=== PATIENT | female | born 1965 | race African-American/Black ===

== ENCOUNTER 2018-04-18 12:09 | Emergency (ER) | payer MEDICAID ==
[~2018-04-18] VITALS: Ht 160 cm; Wt 77.1 kg
[2018-04-18 12:36] VITALS: BP 173/79
[2018-04-18 13:37] LABS: BILIRUBIN,URINE NEGATIVE (NEG); CLARITY,URINE CLEAR; COLOR,URINE YELLOW; NITRITE,URINE NEGATIVE (NEG); PROTEIN,URINE NEGATIVE (NEG-TRACE); UROBILINOGEN,URINE 0.2 mg/dL (0.2 mg/dL)
[2018-04-18] MEDS ORDERED: cefTRIAXone IM 250 MG VIAL IM ONE (13:45)
[2018-04-18] MEDS ORDERED: AZITHROMYCIN 250 MG TABLET. PO ONE (13:45)
[2018-04-18] MEDS ORDERED: metroNIDAZOLE 500 MG TABLET PO ONE (13:45)
[2018-04-18 13:55] LABS: WBC,URINE 20-40 /HPF (0-4)
[2018-04-18 13:56] LABS: BACTERIA,URINE FEW /HPF (0-FEW); SQUAMOUS EPITHELIAL CELL,UR MANY /LPF; TRICHOMONAS,URINE PRESENT
--- NOTE | 2018-04-18 15:05 | PHYS DOC ---
Past Medical History Past Medical History: Anxiety, Schizophrenia, Other Additional Past Medical Histor: PTSD Past Surgical History: Tonsillectomy, Other Additional Past Surgical Histo: D&C,BREAST REDUCTION,THYROID NODULE REMOVED, KNOT FROM R THIGH REMOVED Additional Information: 1 PPD Alcohol Use: None Drug Use: None Adult General Chief Complaint Chief Complaint: MULTIPLE COMPLAINTS [facility] HPI Patient is a 53 year old female with history of schizophrenia, anxiety, who presents today with multiple complaints. Patient is complaining of cough and nasal congestion for one week. She is a smoker. Is also complaining of bilateral ear pain. Patient is also complaining of vaginal discharge for 5 days. She states she's had unprotected sex and would like to be treated for STDs. She is also requesting to be given a shot of Invega Trinza, she states she gets this shot every 3 months for Schizophrenia. She states she is currently visiting from [place], and does not have any money hence would like the medications to be given in the ED. She is also requesting to be treated for STDs. She states she will not fill any prescriptions due to finances. Review of Systems Review of Systems Constitutional: Denies fever or chills [] Eyes: Denies change in visual acuity, redness, or eye pain [] HENT: Reports nasal congestion and bilateral ear pain, denies sore throat [] Respiratory: Reports cough, denies shortness of breath [] Cardiovascular: No additional information not addressed in HPI [] GI: Denies abdominal pain, nausea, vomiting, bloody stools or diarrhea [] : Reports concerns for STDs. Denies dysuria or hematuria [] Musculoskeletal: Denies back pain or joint pain [] Integument: Denies rash or skin lesions [] Neurologic: Denies headache, focal weakness or sensory changes [] Psych: Request for Invega Trinza injection. All other systems were reviewed and found to be within normal limits, except as documented in this note. Current Medications Current Medications Current Medications Medications (Trade) Dose Ordered Sig/Naveed Start Time Stop Time Status Last Admin Dose Admin Azithromycin (Zithromax) 1,000 mg 1X ONCE 04/18/18 13:45 04/18/18 13:46 DC 04/18/18 14:15 1,000 MG Ceftriaxone Sodium (Rocephin Im) 250 mg 1X ONCE 04/18/18 13:45 04/18/18 13:46 DC 04/18/18 14:15 250 MG Metronidazole (Flagyl) 2,000 mg 1X ONCE 04/18/18 13:45 04/18/18 13:46 DC 04/18/18 14:14 2,000 MG Allergies Allergies Allergies Coded Allergies Type Severity Reaction Last Updated Verified albuterol Allergy Intermediate 04/18/18 Yes iodine Allergy Intermediate 04/18/18 Yes prednisone Allergy Intermediate 04/18/18 Yes Physical Exam Physical Exam Constitutional: Well developed, well nourished, no acute distress, non-toxic appearance. [] HENT: Normocephalic, atraumatic, bilateral external ears normal, oropharynx moist, no oral exudates, nose normal. [] Eyes: PERRLA, EOMI, conjunctiva normal, no discharge. [] Neck: Normal range of motion, no tenderness, supple, no stridor. [] Cardiovascular:Heart rate regular rhythm, no murmur [] Lungs & Thorax: Bilateral breath sounds clear to auscultation [] Abdomen: Bowel sounds normal, soft, no tenderness, no masses, no pulsatile masses. [] Skin: Warm, dry, no erythema, no rash. [] Back: No tenderness, no CVA tenderness. [] Extremities: No tenderness, no cyanosis, no clubbing, ROM intact, no edema. [] Neurologic: Alert and oriented X 3, normal motor function, normal sensory function, no focal deficits noted. [] Psychologic: Affect normal, judgement normal, mood normal. [] Current Patient Data Vital Signs Vital Signs Date Time Temp Pulse Resp B/P (MAP) Pulse Ox O2 Delivery O2 Flow Rate FiO2 04/18/18 12:36 98.4 97 18 173/79 (110) 98 Room Air 98.4 Lab Values Laboratory Tests Test 04/18/18 13:25 Urine Collection Type Void Urine Color Yellow Urine Clarity Clear Urine pH 6.0 Urine Specific [place] 1.015 Urine Protein Negative mg/dL (NEG-TRACE) Urine Glucose (UA) Negative mg/dL (NEG) Urine Ketones (Stick) Negative mg/dL (NEG) Urine Blood Trace (NEG) Urine Nitrite Negative (NEG) Urine Bilirubin Negative (NEG) Urine Urobilinogen Dipstick 0.2 mg/dL (0.2 mg/dL) Urine Leukocyte Esterase Large (NEG) Urine RBC 1-2 /HPF (0-2) Urine WBC 20-40 /HPF (0-4) Urine Squamous Epithelial Cells Many /LPF Urine Transitional Epithelial Cells Occ /LPF Urine Bacteria Few /HPF (0-FEW) Urine Trichomonas Present Microbiology 04/18/18 Wet Prep - Final, Complete EKG EKG [] Radiology/Procedures Radiology/Procedures [] Course & Med Decision Making Course & Med Decision Making Pertinent Labs and Imaging studies reviewed. (See chart for details) This is a 53-year-old female patient presented to the ED today with multiple complaints. First she is requesting to be treated for STDs. She is also requesting to be given injection of Invega Trinza which she takes for schizophrenia. She is also requesting to be evaluated for cough and nasal congestion for week. She is a smoker. Encouraged to consider smoking cessation. Her urine was noted for infection as well as Trichomonas. She was given Flagyl Rocephin and azithromycin in the ED. At this point I hope the Rocephin will cover her for her UTI considering she refused prescription for any other medications, she states she cannot afford anything. She left without her discharge paperwork. Dragon Disclaimer Dragon Disclaimer This electronic medical record was generated, in whole or in part, using a voice recognition dictation system. Departure Departure Impression: Primary Impression: Urinary tract infection Additional Impressions: Trichomonas infection Otalgia of both ears Smoking addiction Cough Upper respiratory infection Disposition: HOME, SELF-CARE Condition: STABLE Referrals: UNKNOWN PCP NAME (PCP) Problem Qualifiers Primary Impression: Urinary tract infection Urinary tract infection type: site unspecified Hematuria presence: without hematuria Qualified Codes: N39.0 - Urinary tract infection, site not specified Additional Impressions: Upper respiratory infection URI type: unspecified URI Qualified Codes: J06.9 - Acute upper respiratory infection, unspecified ARUN GONZALEZ ADMIN ASST Apr 18, 2018 15:05
[2018-04-19 12:19] LABS: GC PROBE Negative (Negative)
== END 2018-04-18 14:22 | disposition home or self-care (01) ==
LOC: ER 12:09
DX: B37.49 Other urogenital candidiasis (principal); H92.03 Otalgia, bilateral; J06.9 Acute upper respiratory infection, unspecified; F41.9 Anxiety disorder, unspecified; F20.9 Schizophrenia, unspecified; F43.10 Post-traumatic stress disorder, unspecified; F17.200 Nicotine dependence, unspecified, uncomplicated; Z88.5 Allergy status to narcotic agent; Z91.041 Radiographic dye allergy status; Z88.8 Allergy status to other drugs, medicaments and biological substances
CPT/HCPCS: 81001; 87086; 87491; 87591; 96372; 99283; J0696; Q0111; Q0144